=== PATIENT | female | born 1935 | race Caucasian/White ===

== ENCOUNTER 2023-07-26 11:23 | Outpatient (CLI) | payer MEDICARE, SELFPAY ==
--- NOTE | ~2023-07-26 | XR_ITS ---
EXAMINATION: XR chest 2V Exam Date/Time: 07/26/2023 11:45 [facility] HISTORY: R05.3 - Chronic cough Comparison: 03/29/2005. RESULT: Lines, tubes, and devices: Soft tissue anchors in the right humeral head. Left shoulder arthroplasty . Partially visualized lumbar fusion hardware. Lungs and pleura: Senescent/emphysematous changes. Cardiomediastinal silhouette: Stable. Other: No acute osseous or upper abdominal finding. IMPRESSION: No acute cardiopulmonary process. Reviewed, dictated and finalized at location [facility]
== END 2023-07-26 11:24 | disposition home or self-care (01) ==
PROVIDERS: PCP Emergency Medicine; Visit Provider Emergency Medicine
DX: R05.3 Chronic cough (principal)
CPT/HCPCS: 71046